=== PATIENT | female | born 1960 | race American Indian/Alaskan Native ===

== ENCOUNTER 2019-03-10 15:46 | Emergency (ER) | payer SELFPAY ==
[2019-03-10 15:56] VITALS: BP 147/79
== END 2019-03-10 17:00 | disposition left against medical advice (07) ==
LOC: ED 15:46
DX: M25.562 Pain in left knee (principal); M25.522 Pain in left elbow; Z53.21 Procedure and treatment not carried out due to patient leaving prior to being seen by health care provider